=== PATIENT | male | born 1950 | race Caucasian/White ===

== ENCOUNTER 2016-04-15 16:42 | Emergency (ER) | payer OTHER ==
[~2016-04-15] VITALS: Ht 180.3 cm; Wt 105.1 kg
[~2016-04-15 16:42] MED LIST: ASPI81TA82 PO; EZET10TA47 PO; HYDR25TA4 PO; LSN20 PO; METO50TA17 PO; MULTTAB5 PO; PRVC/40 PO
[2016-04-15 16:44] VITALS: Ht 180.3 cm; Wt 105.1 kg
[2016-04-15] MEDS ORDERED: ACETAMINOPHEN 500 MG TAB PO STA (19:12)
[2016-04-15] MEDS ORDERED: SODIUM CHLORIDE 0.9% 1000ML 1,000 ML IV STA (19:12)
[2016-04-15] MEDS ORDERED: KETOROLAC TROMETHAMINE 30 MG/ML VIAL IV STA (19:12)
--- NOTE | 2016-04-15 19:14 | EMERGENCY ROOM VISIT NOTE ---
History Report prepared by Teresa: Kirby Camara Under the Supervision of: Dr. Claudia Quijano M.D. First contact with patient: 18:54 Chief Complaint: CHEST PAIN Stated Complaint: CHEST PAIN Nursing Triage Summary: Triage note: Pt ambulatory to triage. pt reports intermittent left chest pain x 2 weeks. pt reports in 1999 he had angioplasty and stent placement. History of Present Illness The patient is a 66 year old male who presents to the Emergency Room with complaints of worsening left lower chest pain starting a few weeks ago. He also complains of left upper quadrant abdominal pain. He describes it to be a mild pain. He reports the pain worsens at night. The patient has worsening pain with lying down on his back, lying on his left side, and with palpation. The patient denies any recent injuries. He denies cough, rash, or any other complaints. He has a history of angioplasty, cardiac stent placement, hypercholesteremia, and hypertension. He has a family history of myocardial infarction. He denies any family history of blood clots. Source of History: patient Onset: a few weeks ago Position: chest (left) Symptom Intensity: mild Timing: worsening Modifying Factors (Worsening): other (lying down on his back, lying on his left side, and with palpation) Associated Symptoms: + abdominal pain, No cough, No rash Review of Systems See HPI for pertinent positives & negatives. A total of 10 systems reviewed and were otherwise negative. Past Medical & Surgical Medical Problems: (1) Heart disease (2) Hyperlipidemia (3) Hypertension Surgical Problems: (1) Hx of heart artery stent Family History Cancer Heart disease Hypertension Social History Smoking Status: Never Smoker Alcohol Use: occasionally Marital Status: Housing Status: lives with family Occupation Status: retired Current/Historical Medications Scheduled Aspirin (Aspirin Ec), 81 MG PO DAILY Ezetimibe (Zetia), 10 MG PO DAILY Hydrochlorothiazide (Hctz), 25 MG PO DAILY Lisinopril (Lisinopril), 1 TAB PO DAILY Metoprolol Tartrate (Metoprolol Tartrate), 1 TAB PO BID Multiple Vitamins W/ Minerals (Centrum), 1 TAB PO DAILY Pravastatin Sod (Pravastatin Sodium), 1 TAB PO DAILY Allergies Coded Allergies: BEE STING (Verified Allergy, Intermediate, swelling, 02/16/15) Penicillin V (Verified Allergy, Unknown, reaction as a child not sure as adult, 02/16/15) Physical Exam Vital Signs Date Time Temp Pulse Resp B/P Pulse Ox O2 Delivery O2 Flow Rate FiO2 04/15/16 19:13 72 04/15/16 18:57 70 18 175/86 98 04/15/16 16:44 36.8 80 18 191/94 97 Room Air Physical Exam CONSTITUTIONAL: Mild painful distress, anxious HEENT: No icterus, moist mucous membranes NECK: No meningismus, trachea is midline. CARDIOVASCULAR: Regular rate, normal perfusion RESPIRATORY: Unlabored breathing. Clear to auscultation. GASTROINTESTINAL: Non-tender GENITOURINARY: No flank tenderness MUSCULOSKELETAL: Full range of motion NEUROLOGIC: No acute gross focal deficits. PSYCHIATRIC: Normal affect SKIN: Normal for ethnicity. Medical Decision & Procedures Laboratory Results 04/15/16 19:27 Red Blood Count 4.47, Mean Corpuscular Volume 88.8, Mean Corpuscular Hemoglobin 31.5, Mean Corpuscular Hemoglobin Concent 35.5, Mean Platelet Volume 9.3, Neutrophils (%) (Auto) 54.4, Lymphocytes (%) (Auto) 32.3, Monocytes (%) (Auto) 9.4, Eosinophils (%) (Auto) 3.1, Basophils (%) (Auto) 0.6, Neutrophils # (Auto) 4.93, Lymphocytes # (Auto) 2.93, Monocytes # (Auto) 0.85, Eosinophils # (Auto) 0.28, Basophils # (Auto) 0.05 04/15/16 19:27 Test 04/15/16 19:27 White Blood Count 9.06 K/uL (4.8-10.8) Red Blood Count 4.47 M/uL (4.7-6.1) Hemoglobin 14.1 g/dL (14.0-18.0) Hematocrit 39.7 % (42-52) Mean Corpuscular Volume 88.8 fL (80-100) Mean Corpuscular Hemoglobin 31.5 pg (25-34) Mean Corpuscular Hemoglobin Concent 35.5 g/dl (32-36) Platelet Count 274 K/uL (130-400) Mean Platelet Volume 9.3 fL (7.4-10.4) Neutrophils (%) (Auto) 54.4 % Lymphocytes (%) (Auto) 32.3 % Monocytes (%) (Auto) 9.4 % Eosinophils (%) (Auto) 3.1 % Basophils (%) (Auto) 0.6 % Neutrophils # (Auto) 4.93 K/uL (1.4-6.5) Lymphocytes # (Auto) 2.93 K/uL (1.2-3.4) Monocytes # (Auto) 0.85 K/uL (0.11-0.59) Eosinophils # (Auto) 0.28 K/uL (0-0.5) Basophils # (Auto) 0.05 K/uL (0-0.2) RDW Standard Deviation 46.0 fL (36.4-46.3) RDW Coefficient of Variation 14.1 % (11.5-14.5) Immature Granulocyte % (Auto) 0.2 % Immature Granulocyte # (Auto) 0.02 K/uL (0.00-0.02) Anion Gap 9.0 mmol/L (3-11) Est Creatinine Clear Calc Drug Dose 108.0 ml/min Estimated GFR () 106.3 Estimated GFR (Non- 91.7 BUN/Creatinine Ratio 16.3 (10-20) Calcium Level 8.8 mg/dl (8.5-10.1) Troponin I < 0.015 ng/ml (0-0.045) Labs reviewed by ED physician. Medications Administered Medications (Trade) Dose Ordered Sig/Willam Route Start Time Stop Time Status Last Admin Dose Admin Acetaminophen 1000 mg 1,000 mg NOW STAT PO 04/15/16 19:12 04/15/16 19:17 DC 04/15/16 19:35 1,000 MG Sodium Chloride (Nss 1000ml) 1,000 ml @ 0 mls/hr Q0M STAT IV 04/15/16 19:12 04/15/16 19:17 DC 04/15/16 19:34 0 MLS/HR Ketorolac Tromethamine (Toradol Inj) 15 mg NOW STAT IV 04/15/16 19:12 04/15/16 19:18 DC 04/15/16 19:36 15 MG ECG Indication: chest pain Rate (beats per minute): 66 Rhythm: normal sinus Findings: nonspecific-ST abn, no ectopy, other (Normal axis) ED Course 1853: Past medical records reviewed. The patient was evaluated in room A02. A complete history and physical examination was performed. 1911: Toradol Inj 15 mg IV, Sodium Chloride 1000 ml @ 0 mls/hr Wide Open IV, Tylenol Tab 1000 mg PO 1914: Morphine Sulfate 4 mg IV Medical Decision Differential diagnosis includes but is not limited to musculoskeletal pain, pulmonary embolus, heart disease. 66-year-old presented to the emergency department for evaluation of persistent possibly positional or pleuritic sternal or possibly retrosternal chest pain for 3 weeks. He notes a history of coronary artery disease status post [place] status post stenting roughly 15 years ago. Patient feels prickly anxious pelvis pain and would like to be reassured that there is no acute pathology or serious disease. We discussed the risks and benefits as well as pros and cons of x-ray imaging versus CT and decision was made to obtain CT. EKG, troponin and CTA chest study were all normal. Patient understands take [id number] analgesics as needed and follow-up with his primary doctor return for any worsening or worrisome symptoms. Impression Primary Impression: Precordial chest pain Scribe Attestation The scribe's documentation has been prepared under my direction and personally reviewed by me in its entirety. I confirm that the note above accurately reflects all work, treatment, procedures, and medical decision making performed by me. Departure Information Referrals Harjit Carrillo D.O. (PCP) Patient Instructions My [facility]
[2016-04-15] MEDS ORDERED: MoRPHine SULFATE 4 MG/ML 1 ML CARP\\VIAL IV PRN (19:15)
[2016-04-15] MEDS ORDERED: ASPI81TA28 PO (19:21)
[2016-04-15] MEDS ORDERED: OPTIRAY 320 IV PRN (19:30)
[2016-04-15 19:35] LABS: BASO % 0.6 %; BASO ABS # 0.05 K/uL (0-0.2); COMPLETE YES; EOS % 3.1 %; HEMATOCRIT 39.7 % (42-52); IG% 0.2 %; LYMPH % 32.3 %; LYMPH ABS # 2.93 K/uL (1.2-3.4); MEAN CELL VOLUME 88.8 fL (80-100); MEAN CORPUSCULAR HEMOGLOBIN 31.5 pg (25-34); MEAN CORPUSCULAR HGB CONC 35.5 g/dl (32-36); MEAN PLATELET VOLUME 9.3 fL (7.4-10.4); MONO % 9.4 %; NEUT % 54.4 %; PLATELET COUNT 274 K/uL (130-400); RED BLOOD COUNT 4.47 M/uL (4.7-6.1); WHITE BLOOD COUNT 9.06 K/uL (4.8-10.8)
--- NOTE | 2016-04-15 19:50 | DIAGNOSTIC IMAGING REPORT ---
CHEST ONE VIEW PORTABLE CLINICAL HISTORY: Left-sided chest pain. COMPARISON STUDY: Chest radiograph and chest CT February 16, 2015. FINDINGS: Lung volumes are normal. No pneumothorax or pleural effusion is present. There is no evidence of pulmonary edema. Mild cardiomegaly is unchanged. IMPRESSION: No acute cardiopulmonary findings. Electronically signed by: Guzman Blum M.D. 04/15/2016 7:48 PM Dictated Date/Time: 04/15/2016 7:48 PM
[2016-04-15 19:54] LABS: BLOOD UREA NITROGEN 14 mg/dl (7-18); BUN/CREATININE RATIO 16.3 (10-20); CALCIUM 8.8 mg/dl (8.5-10.1); CARBON DIOXIDE 27 mmol/L (21-32); CHLORIDE 104 mmol/L (98-107); CREATININE 0.83 mg/dl (0.60-1.40); GLUCOSE 83 mg/dl (70-99); POTASSIUM 3.9 mmol/L (3.5-5.1); SODIUM 140 mmol/L (136-145)
--- NOTE | 2016-04-15 20:42 | DIAGNOSTIC IMAGING REPORT ---
CT ANGIOGRAPHY OF THE CHEST, PULMONARY EMBOLUS PROTOCOL CLINICAL HISTORY: Chest pain. Evaluate for pulmonary embolus or left sternal mass. COMPARISON STUDY: Chest CT February 16, 2015. TECHNIQUE: Following IV administration of 88 mL of Optiray-320, helical axial images of the chest were obtained utilizing the pulmonary embolus protocol. Maximal intensity projections and sagittal and coronal reformats were viewed on an independent 3D workstation. IV contrast was administered without complication. CT DOSE: 545.36 mGy.cm FINDINGS: No pulmonary emboli are identified. The heart is mildly enlarged. There is no pericardial effusion. There is extensive coronary artery calcification. No enlarged thoracic lymph nodes are present. Central airways are patent. No pneumothorax or pleural effusion is present. There is no consolidation. No sternal abnormalities identified by CT. IMPRESSION: 1. No pulmonary emboli identified. 2. No acute intrathoracic findings. 3. No sternal abnormality by CT. 4. Mild cardiomegaly and extensive coronary artery calcification. Electronically signed by: Guzman Blum M.D. 04/15/2016 8:40 PM Dictated Date/Time: 04/15/2016 8:35 PM
[2016-04-15 21:26] VITALS: BP 175/86; PULSE 72; TEMP 36.8; O2SAT 98
== END 2016-04-15 21:32 | disposition home or self-care (01) ==
LOC: C.EDB 16:42 → C.EDA 21:32
DX: R07.2 Precordial pain (principal); R10.12 Left upper quadrant pain; I25.10 Atherosclerotic heart disease of native coronary artery without angina pectoris; I25.2 Old myocardial infarction; I11.9 Hypertensive heart disease without heart failure; E78.5 Hyperlipidemia, unspecified; Z79.899 Other long term (current) drug therapy; Z79.82 Long term (current) use of aspirin; Z95.5 Presence of coronary angioplasty implant and graft; Z82.49 Family history of ischemic heart disease and other diseases of the circulatory system

== ENCOUNTER → 2016-10-11 | Outpatient (CLI) | payer OTHER ==
[~2016-10-11] MED LIST changes: +ASPI81TA28 PO; -ASPI81TA82 PO
--- NOTE | 2016-10-18 08:47 | CODING QUERY MEDICAL NECESSITY ---
SUPPORTING DIAGNOSIS NEEDED A supporting diagnosis is required for the test/procedure performed on this patient in order for us to be reimbursed by the patient's insurance. Please provide a supporting diagnosis for the following test/procedure listed below next to the test name along with your signature. *If there is no additional diagnosis for this patient that would support the following test/procedure please document that below next to the test/procedure. Test(s)/Procedure(s) that require a supporting diagnosis: * PSA DIAGNOSIS: Provider Signature: Date: Thank you Candelaria Blue [employer] Information Management Once completed, please kindly fax back to [phone] For questions please call [phone]
== END | disposition home or self-care (01) ==
LOC: C.LAB 15:57
PROVIDERS: ATTEND Urology
DX: R36.1 Hematospermia (principal); R35.1 Nocturia

== ENCOUNTER 2017-07-28 21:22 | Emergency (ER) | payer OTHER ==
[~2017-07-28] VITALS: Ht 180.3 cm; Wt 95.0 kg
[2017-07-28 21:32] VITALS: TEMP 37.1; Ht 180.3 cm; Wt 95.0 kg
--- NOTE | 2017-07-28 22:21 | DIAGNOSTIC IMAGING REPORT ---
R FOOT MIN 3 VIEWS ROUTINE CLINICAL HISTORY: 67 years-old Male presenting with right foot pain, remote injury. TECHNIQUE: Frontal, oblique, and lateral views of the right foot were obtained. COMPARISON: None. FINDINGS: Severe joint space loss, osteophytosis, subchondral sclerosis, and cystic change evident in the first metatarsophalangeal joint. Minimal associated soft tissue swelling. No other significant sites of degenerative change. Symphalangism of the middle and distal phalanges of the fifth toe. No acute fracture or malalignment. Atherosclerosis. IMPRESSION: 1. Advanced degenerative change characteristic of osteoarthritis at the first metatarsophalangeal joint. 2. No acute osseous injury. Electronically signed by: Ahsan Boswell M.D. 07/28/2017 10:20 PM Dictated Date/Time: 07/28/2017 10:18 PM
--- NOTE | 2017-07-28 22:52 | EMERGENCY ROOM VISIT NOTE ---
History First contact with patient: 21:36 Chief Complaint: FOOT PAIN Stated Complaint: HURT RT FOOT, MUCH PAIN History of Present Illness The patient is a 67 year old male who presents to the Emergency Room with complaints of right foot pain. The patient reports that approximately 2 months ago, he slid down 3 steps and hit the right heel against the floor. He had some intermittent pain of the foot at that time for approximately 1 week. He states that the pain resolved and he has been pain-free since then until a few days ago. He reports that for the past 2 days, he has been doing yard work and has begun to have pain in his right heel again. He states the pain is an aching , throbbing pain and rates the discomfort as 7/10. The pain is worse with walking and improves with rest. He has been taking Tylenol without improvement. He denies any numbness or weakness. He is able to walk without difficulty. He has full range of motion of his ankle and all toes. He denies prior injuries to this foot or surgeries. Review of Systems A complete 6 point review of systems was reviewed with the patient with pertinent positives and negatives as per history of present illness. All else were negative. Past Medical/Surgical History Medical Problems: (1) Heart disease (2) Hyperlipidemia (3) Hypertension Surgical Problems: (1) Hx of heart artery stent Family History Cancer Heart disease Hypertension Social History Smoking Status: Never Smoker Alcohol Use: occasionally Marital Status: Housing Status: lives with family Occupation Status: retired Current/Historical Medications Scheduled Aspirin (Aspirin Ec), 81 MG PO DAILY Ezetimibe (Zetia), 10 MG PO DAILY Hydrochlorothiazide (Hctz), 25 MG PO DAILY Lisinopril (Lisinopril), 1 TAB PO DAILY Metoprolol Tartrate (Metoprolol Tartrate), 1 TAB PO BID Multiple Vitamins W/ Minerals (Centrum), 1 TAB PO DAILY Pravastatin Sod (Pravastatin Sodium), 1 TAB PO DAILY Ranitidine HCl (Ranitidine HCl), 150 MG PO BID Physical Exam Vital Signs Date Time Temp Pulse Resp B/P (MAP) Pulse Ox O2 Delivery O2 Flow Rate FiO2 07/28/17 22:56 61 18 159/84 99 07/28/17 21:32 37.1 59 18 155/77 99 Physical Exam VITALS: Vitals are noted on the nurse's note and reviewed by myself. Vital signs stable. GENERAL: This is a 67-year-old male, in no acute distress, nondiaphoretic, well- developed well-nourished. SKIN: The skin was without rashes, erythema, edema, or bruising. MUSCULOSKELETAL: No deformity of the right foot. No obvious swelling. There is mild tenderness to palpation to the medial aspect of the right foot. No tenderness over the plantar fascia. Full range of motion of the ankle and all toes. NEURO: Patient was alert and oriented to person place and time. Distal sensation intact. Medical Decision & Procedures ER Provider Diagnostic Interpretation: R FOOT MIN 3 VIEWS ROUTINE CLINICAL HISTORY: 67 years-old Male presenting with right foot pain, remote injury. TECHNIQUE: Frontal, oblique, and lateral views of the right foot were obtained. COMPARISON: None. FINDINGS: Severe joint space loss, osteophytosis, subchondral sclerosis, and cystic change evident in the first metatarsophalangeal joint. Minimal associated soft tissue swelling. No other significant sites of degenerative change. Symphalangism of the middle and distal phalanges of the fifth toe. No acute fracture or malalignment. Atherosclerosis. IMPRESSION: 1. Advanced degenerative change characteristic of osteoarthritis at the first metatarsophalangeal joint. 2. No acute osseous injury. Medical Decision Differential diagnosis includes fracture, contusion, sprain, plantar fasciitis, heel spurs, stress fracture, among others. The patient was evaluated as above. X-ray of the foot was obtained and read by radiology with no acute findings. Patient was advised to follow-up with podiatry or orthopedics for further evaluation of his foot pain. He was advised to ice the foot for swelling/pain and elevate the foot as well. He verbalized understanding of my assessment and treatment plan and was discharged home in good condition. The patient was independently evaluated by Dr. Swanson, ED attending physician, who agreed with my assessment and treatment plan. Blood Pressure Screening Patient's blood pressure: Elevated blood pressure Blood pressure disposition: Elevated BP felt to be situational Impression Primary Impression: Right foot pain Departure Information Dispostion Home / Self-Care Condition GOOD Referrals Harjit Carrillo D.O. (PCP) Bernard Retana MD Patient Instructions My [facility] Additional Instructions You have been treated in the Emergency Department for foot pain. For pain control, you can use the following [id number] medicines (if >12 yo): - Regular strength (325mg/tab) Tylenol (acetaminophen) 2 tabs every 4-6 hours as needed. Do not exceed 12 tablets in a 24 hour period. Avoid taking more than 4 grams (4000 mg) of Tylenol per day. This includes any other sources of acetaminophen you may take on a regular basis. - Regular strength (200 mg/tab) Advil (ibuprofen) 1-2 tabs every 4-6 hours as needed. Do not exceed a dose of 3200 mg per day. If this is a recent injury (<24 hrs), ice can be applied to the area of pain for the first 3 days to help decrease pain and inflammation. You may follow-up with either orthopedics or a hris administrator for further evaluation of your foot pain. Rest as much as possible. Return to the Emergency Department if your current symptoms worsen despite treatment course outlined above, or if you develop any of the following symptoms : intractable pain despite aforementioned treatment course or new onset of numbness or tingling of the foot.
[2017-07-28 22:56] VITALS: BP 159/84; PULSE 61; O2SAT 99
[2017-07-28] MEDS ORDERED: RANI150T2 PO (22:58)
--- NOTE | 2017-07-29 01:35 | EMERGENCY ROOM VISIT NOTE ---
ED Visit Note First contact with patient: 21:36 I have personally seen and evaluated the patient with the PA. I agree with the diagnosis and management decisions and have been personally involved in the case. Please see Krystal Retana PA-C's notes for further details of the history, physical and visit.
== END 2017-07-28 22:58 | disposition home or self-care (01) ==
LOC: C.EDB 21:23 → C.EDD 22:58
DX: M79.671 Pain in right foot (principal); I51.9 Heart disease, unspecified; E78.5 Hyperlipidemia, unspecified; I10 Essential (primary) hypertension; Z79.82 Long term (current) use of aspirin

== ENCOUNTER 2020-08-06 22:43 | Observation (INO) ==
[2020-08-06] MEDS ORDERED: ASPIRIN 81 MG CHEW PO STA (23:05)
[2020-08-06] MEDS ORDERED: NITROGLYCERIN SL 0.4 MG/TAB TAB SL STA (23:05)
--- NOTE | 2020-08-06 23:10 | Emergency Department Note ---
Impression & Plan Left sided chest pain, Hypertension ED Provider Note Name: TERE HOOD Age: 70 Sex: M Arrives Via: Walk-In Informant: Patient ED Provider: Joe Jack MD Chief Complaint: Chest Pain Impression: Left Sided Chest Pain Hypertension Medical Decision Makin yr old male with history CAD s/p stents 20 years ago, HTN, DLP, prostate CA, arrives with intermittent left chest pressure over last 24 hours, worsening this evening. Resolved with Sublingual nitro, as well at ASA 324mg PO. Initial EKG and Trop OK. CXR clear and labs unremarkable. High risk cardiac thus will need hospitalization. Prior Medical Record and Triage/Nursing Notes reviewed by Me Additional history obtained from chart Differentials:Cardiac ischemia, aortic dissection, pulmonary embolism, pneumothorax, pneumonia, pericarditis, myocarditis, esophageal rupture, GERD, cholecystitis, pancreatitis, musculoskeletal, as well as other pathologies. Vital Signs: reviewed and remarkable for HTN Interventions: saline lock, slntg, asa 324mg po Labs:Reviewed and remarkable for no significant abnormalities Imaging:X ray results are stated below per my interpretation: Chest: 1 view: No infiltrate, no effusion, normal cardiac border. EKG:Per My Interpretation: Indication Chest Pain: NSR 82 bpm, qtc 450. No Ectopy. No Ischemia. No previous for comparison Cardiac/Tele Monitoring: Cardiac Monitoring: An Order was placed for continuous cardiac monitoring. The monitor shows a rate of 80 with a normal sinus rhythm. Consults:Dr Harman LOCKHART Hospitalist Plan: Disposition:Hospitalization. Condition: Good History of Present Illness:70 yr old male arrives for evaluation of left chest pain. 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 He notes that it has been waxing and waning throughout the day. Worse with exertion/mowing, better with rest. Dull in nature. 05/07 currently. No radiation. No sob, syncope, palpitations, nausea, vomiting, abdominal pain, back pain, nor other symptoms. Denies leg/calf pain nor swelling. No medications prior to arrival. No trauma/injuries. History of CAD with cath in 1999 resulting in stents. Stress test last year was reportedly normal. Patient is active, walks on treadmill daily without issues. No smoking, drugs. Occasional etoh. Diagnosed with Prostate CA recently and has yet to start treatment. ROS: See above HPI for pertinent positives & negatives. A total of 10 systems reviewed and were otherwise negative. Past Medical History:HTN, Dyslipidemia, CAD, prostate ca Past Surgical History:Heart Cath with stents, right wrist surgery Family History:Extensive, See Below Social History:Retired, active, , no drugs/tobacco, occasional etoh Home Medications:See Below Allergies:PNC, Bees Vitals:Blood Pressure: 212/91, Pulse 89, RR 18, T 36.5C, O2 95% on RA Physical Exam: GENERAL: Patient is anxious appearing and in mild distress. EYES: No scleral icterus, unremarkable pupils. ENT: Mucous membranes moist, no nasal congestion. NECK: No masses appreciated, nomeningismus, trachea is midline. RESPIRATORY: No dyspnea. Clear to auscultation and equal bilaterally. No wheeze, no rhonchi. CARDIOVASCULAR: Regular rate and rhythm.No murmurs, rubs, gallops appreciated. GASTROINTESTINAL: Abdomen soft, non-tender, no peritonitis.Bowel sounds positive.No masses appreciated. BACK: No midline tenderness, no CVA tenderness EXTREMITIES: Normal motion all extremities, no cyanosis, no edema. NEUROLOGIC: Alert and oriented, no acute motor or sensory deficits, no focal weakness, cranial nerves grossly intact. SKIN: No rash, no jaundice, no diaphoresis. PSYCH: Appropriate GCS: 15 ED Course: Times/Reassessments: stable, chest pain resolved, comfortable with hospitalization Joe Jack MD Past Med/Surg History Medical History (Updated 08/07/20 @ 05:45 by Joe Jack MD) BPH (benign prostatic hyperplasia) BPH loc w urin obs/LUTS Degenerative disc disease Elevated PSA Heart disease Hematospermia Hiatal hernia Hyperlipidemia Hypertension Impotence Left sided abdominal pain Left sided chest pain Organic impotence Osteoarthritis Pure hypercholesterolemia Surgical History (Updated 08/06/20 @ 08:56 by Nica Agee RN) H/O carpal tunnel repair Right H/O hernia repair History of colonoscopy History of esophagogastroduodenoscopy (EGD) History of heart artery stent 2 STENTS PLACED (1999 AT [facility]) History of tonsillectomy and adenoidectomy History of tooth extraction Family History (Updated 08/07/20 @ 02:51 by Mel Camargo MD) Father , 79yo Colorectal cancer Myocardial infarction Heart disease Mother , 81yo Myocardial infarction COPD (chronic obstructive pulmonary disease) Hypertension Heart disease Sister Myocardial infarction Heart disease Sister No problems noted. Brother Myocardial infarction Brother Hypertension Brother Hypertension Brother Hypertension Testicular cancer Heart disease Daughter Viral encephalitis 2017 Daughter No problems noted. 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 Other Information That Helps Us Care for You: No Feels Safe at Home: Yes Safety Concerns: Feels Safe At This Time caffeine: No during the past year weight has: remained stable Assistive Devices: Glasses Allergies Allergies Allergy/AdvReac Type Severity Reaction Status Date / Time bee venom protein (honey bee) Allergy Intermediate swelling Verified 08/06/20 09:38 penicillin V Allergy Unknown reaction Verified 08/06/20 09:38 as a child not sure as adult Home Meds Home Medications Medication Instructions Recorded Confirmed aspirin 81 mg tablet,delayed 81 mg PO QPM 04/03/19 08/06/20 release ezetimibe 10 mg tablet 10 mg PO QPM 04/03/19 08/06/20 hydrochlorothiazide 25 mg tablet 25 mg PO QAM 04/03/19 08/06/20 lisinopril 20 mg tablet 20 mg PO QAM 04/03/19 08/06/20 metoprolol tartrate 50 mg tablet 50 mg PO BID 04/03/19 08/06/20 pravastatin 40 mg tablet 40 mg PO QPM 04/03/19 08/06/20 multivitamin 1 tab PO QAM 12/17/19 08/06/20 Results & Data (ED) Vital Signs Vital Signs - 24 hr 08/06/20 22:44 08/06/20 23:00 08/06/20 23:05 Temperature 36.5 C Temperature Source Temporal Artery Scan Pulse Rate 89 84 79 Pulse Rate from SpO2 Sensor 83 79 Respiratory Rate 18 23 18 Blood Pressure 212/91 H 183/81 H Blood Pressure Mean 131 115 Pulse Oximetry 95 97 98 Oxygen Delivery Method Room Air Sepsis Recent Fever Within 48 Hours No Sepsis New/Unexplained Change in Mental Status No Sepsis Action Taken by Nursing No Action Required 08/06/20 23:10 08/06/20 23:30 08/06/20 23:31 Temperature Temperature Source Pulse Rate 69 76 80 Pulse Rate from SpO2 Sensor 70 80 Respiratory Rate 18 15 20 Blood Pressure 170/88 H 155/80 H Blood Pressure Mean 115 105 Pulse Oximetry 97 95 96 Oxygen Delivery Method Sepsis Recent Fever Within 48 Hours Sepsis New/Unexplained Change in Mental Status Sepsis Action Taken by Nursing 08/07/20 00:00 08/07/20 00:01 08/07/20 00:30 Temperature Temperature Source Pulse Rate 63 64 64 Pulse Rate from SpO2 Sensor 62 64 65 Respiratory Rate 16 15 22 Blood Pressure 145/79 H 167/79 H Blood Pressure Mean 101 108 Pulse Oximetry 95 97 98 Oxygen Delivery Method Sepsis Recent Fever Within 48 Hours Sepsis New/Unexplained Change in Mental Status Sepsis Action Taken by Nursing 08/07/20 01:00 08/07/20 01:01 Temperature Temperature Source Pulse Rate 62 66 Pulse Rate from SpO2 Sensor 65 63 Respiratory Rate 21 25 H Blood Pressure 165/90 H Blood Pressure Mean 115 Pulse Oximetry 95 98 Oxygen Delivery Method Sepsis Recent Fever Within 48 Hours Sepsis New/Unexplained Change in Mental Status Sepsis Action Taken by Nursing Laboratory Data Result diagrams: 08/06/20 23:06 08/06/20 23:06 Lab Results 08/06/20 08/06/20 08/06/20 Range/Units 23:06 23:06 23:06 WBC 8.23 (4.8-10.8) K/uL RBC 4.57 L (4.7-6.1) M/uL Hgb 14.4 (14.0-18.0) g/dL Hct 42.1 (42-52) % MCV 92.1 (80-100) fL MCH 31.5 (25-34) pg MCHC 34.2 (32-36) g/dL RDW Std Deviation 45.6 (36.4-46.3) fL RDW Coeff of Connie 13.5 (11.5-14.5) % Plt Count 265 (130-400) K/uL MPV 9.5 (7.4-10.4) fL Immature Gran % (Auto) 0.1 % Neut % (Auto) 52.3 % Lymph % (Auto) 33.8 % [place] % (Auto) 9.5 % Eos % (Auto) 3.9 % Baso % (Auto) 0.4 % Neut # (Auto) 4.31 (1.4-6.5) K/uL Lymph # (Auto) 2.78 (1.2-3.4) K/uL [place] # (Auto) 0.78 H (0.11-0.59) K/uL Eos # (Auto) 0.32 (0-0.5) K/uL Baso # (Auto) 0.03 (0-0.2) K/uL Immature Gran # (Auto) 0.01 (0.00-0.02) K/uL D-Dimer 370 (0-500) ug/L FEU Sodium 140 (136-145) mmol/L Potassium 3.4 L (3.5-5.1) mmol/L Chloride 105 (98-107) mmol/L Carbon Dioxide 30 (21-32) mmol/L Anion Gap 5.0 (3-11) BUN 14 (7-18) mg/dl Creatinine 0.81 (0.6-1.4) mg/dl Est Cr Clr Drug Dosing 100.9 ml/min Est GFR ( Amer) 104.4 ml/min Est GFR (Non-Af Amer) 90.0 ml/min BUN/Creatinine Ratio 16.7 (10-20) Glucose 125 H (70-99) mg/dl Calcium 9.2 (8.5-10.1) mg/dl Magnesium 2.1 (1.8-2.4) mg/dl Troponin I < 0.015 (0-0.045) ng/ml COVID-19 Eval Order SARS-CoV-2 (PCR) (Negative) 08/06/20 08/06/20 Range/Units 23:19 23:19 WBC (4.8-10.8) K/uL RBC (4.7-6.1) M/uL Hgb (14.0-18.0) g/dL Hct (42-52) % MCV (80-100) fL MCH (25-34) pg MCHC (32-36) g/dL RDW Std Deviation (36.4-46.3) fL RDW Coeff of Connie (11.5-14.5) % Plt Count (130-400) K/uL MPV (7.4-10.4) fL Immature Gran % (Auto) % Neut % (Auto) % Lymph % (Auto) % [place] % (Auto) % Eos % (Auto) % Baso % (Auto) % Neut # (Auto) (1.4-6.5) K/uL Lymph # (Auto) (1.2-3.4) K/uL [place] # (Auto) (0.11-0.59) K/uL Eos # (Auto) (0-0.5) K/uL Baso # (Auto) (0-0.2) K/uL Immature Gran # (Auto) (0.00-0.02) K/uL D-Dimer (0-500) ug/L FEU Sodium (136-145) mmol/L Potassium (3.5-5.1) mmol/L Chloride (98-107) mmol/L Carbon Dioxide (21-32) mmol/L Anion Gap (3-11) BUN (7-18) mg/dl Creatinine (0.6-1.4) mg/dl Est Cr Clr Drug Dosing ml/min Est GFR ( Amer) ml/min Est GFR (Non-Af Amer) ml/min BUN/Creatinine Ratio (10-20) Glucose (70-99) mg/dl Calcium (8.5-10.1) mg/dl Magnesium (1.8-2.4) mg/dl Troponin I (0-0.045) ng/ml COVID-19 Eval Order Covid19 at [facility] SARS-CoV-2 (PCR) NEGATIVE (Negative) Administered Medications Discontinued Medications Aspirin (Aspirin 81 Mg Chew) 324 mg PO NOW STA Stop: 08/06/20 23:06 Last Admin: 08/06/20 23:26 Dose: 324 mg Documented by: [id number] Nitroglycerin (Nitroglycerin Sl 0.4 Mg/Tab Tab) 0.4 mg SL NOW STA Stop: 08/06/20 23:06 Last Admin: 08/06/20 23:26 Dose: 0.4 mg Documented by: [id number] Discharge Plan Visit Data Chief Complaint: Chest Pain Stated Complaint: CHEST PAIN ED Provider: Joe Jack Discharge Problem: Left sided chest pain, Hypertension Patient Disposition: Admitted As Inpatient Discharge Instructions Interventions: ED Discharge Assessment Last Done: 08/07/20 03:11 Discharge Problem: Hypertension Qualifiers: Hypertension type: essential hypertension Qualified Code(s): I10 - Essential (primary) hypertension
[2020-08-06 23:20] LABS: Basophils # (auto) 0.03 K/uL (0-0.2); Basophils % (auto) 0.4 %; Eosinophils # (auto) 0.32 K/uL (0-0.5); Eosinophils % (auto) 3.9 %; Hematocrit (blood only) 42.1 % (42-52); Hemoglobin 14.4 g/dL (14.0-18.0); Immature Granulocytes # (auto) 0.01 K/uL (0.00-0.02); Immature Granulocytes % (auto) 0.1 %; Lymphocytes # (auto) 2.78 K/uL (1.2-3.4); Lymphocytes % (auto) 33.8 %; Mean Corpuscular Hemoglobin 31.5 pg (25-34); Mean Corpuscular Hgb Conc 34.2 g/dL (32-36); Mean Corpuscular Volume 92.1 fL (80-100); Mean Platelet Volume 9.5 fL (7.4-10.4); Monocytes # (auto) 0.78 K/uL (0.11-0.59); Monocytes % (auto) 9.5 %; Neutrophils # (auto) 4.31 K/uL (1.4-6.5); Neutrophils % (auto) 52.3 %; Platelet Count 265 K/uL (130-400); RDW Coefficient of Variation 13.5 % (11.5-14.5); RDW Standard Deviation 45.6 fL (36.4-46.3); Red Blood Count 4.57 M/uL (4.7-6.1); White Blood Count 8.23 K/uL (4.8-10.8)
[2020-08-06 23:58] LABS: BUN Creatinine Ratio 16.7 (10-20); Blood Urea Nitrogen 14 mg/dl (7-18); Calcium 9.2 mg/dl (8.5-10.1); Carbon Dioxide 30 mmol/L (21-32); Chloride 105 mmol/L (98-107); Creatinine Clr Calc Pharmacy 100.9 ml/min; Est GFR (African American) 104.4 ml/min; Glucose 125 mg/dl (70-99); Magnesium 2.1 mg/dl (1.8-2.4); Potassium 3.4 mmol/L (3.5-5.1); Sodium 140 mmol/L (136-145)
[2020-08-07 00:03] LABS: Troponin I < 0.015 ng/ml (0-0.045)
--- NOTE | 2020-08-07 01:07 | History & Physical Report ---
Date of Service August 07, 2020 Assessment & Plan (1) Left sided chest pain: 70 yo M with hx CAD s/p 2 stent placements, HTN, HLD, recent diagnosis of prostate cancer admitted for chest pain that is likely noncardiac in nature. Chest Pain Workup - most likely costochondritis given reproducible chest pain along chest wall, atypical features - negative initial trop, repeat x2 - no EKG changes - HEART score 4, moderate risk - d-dimer negative for PE evaluation in setting of new cancer - telemetry monitoring, TTE, trop trend - naproxen 250 mg bid for costochondritis tx HTN - cont lisinopril, metoprolol, HCTZ CAD - cont aspirin, - EKG with chest pain - PRN nitro HLD - cont exetimibe + statin DVT ppx: heparin SQ FEN/GI: heart healthy Code Status: Full COde Dispo: Med/Surg w tele (2) Prostate cancer: (3) Hypertension: (4) Pure hypercholesterolemia: (5) CAD, multiple vessel: History of Present Illness 70 yo M with hx HTN, HLD, CAD s/p 2 stents placed in 1999, fmhx heart disease, and recently diagnosed prostate cancer who presents to the ER for acute onset chest pain. He states the pain started at 3 am on 08/06 all of a sudden and was a sharp left sided pain. The pain resolved on its own in a matter of seconds wi thout intervention. This happened multiple more times throughout the day with sudden sharp twinges of left sided, nonradiating pain. No associated SOB, chest pressure, arm pain with twinges of pain. He does have some increased pain with taking a deep breath but did not have any chest pain with working out this morning. He hasn't taken anything to try and help the pain, and came to the ER because it was getting worse. He denies any smoking history, diabetic history. He states his blood pressure is generally well controlled at 140/85, but today was 200/90 at home prior to coming to the hospital. He has had multiple family members of heart attacks and strokes both older and younger than him. Primary Care Provider: Felicita Hernandez MD Allergies Allergy/AdvReac Type Severity Reaction Status Date / Time bee venom protein (honey bee) Allergy Intermediate swelling Verified 08/06/20 09:38 penicillin V Allergy Unknown reaction Verified 08/06/20 09:38 as a child not sure as adult Home Medications Medication Instructions Recorded Confirmed Type aspirin 81 mg tablet,delayed 81 mg PO QPM 04/03/19 08/06/20 History release ezetimibe 10 mg tablet 10 mg PO QPM 04/03/19 08/06/20 History hydrochlorothiazide 25 mg tablet 25 mg PO QAM 04/03/19 08/06/20 History lisinopril 20 mg tablet 20 mg PO QAM 04/03/19 08/06/20 History metoprolol tartrate 50 mg tablet 50 mg PO BID 04/03/19 08/06/20 History pravastatin 40 mg tablet 40 mg PO QPM 04/03/19 08/06/20 History multivitamin 1 tab PO QAM 12/17/19 08/06/20 History Past Med/Surg History Medical History (Updated 08/08/20 @ 00:05 by Dean Harris) BPH (benign prostatic hyperplasia) BPH loc w urin obs/LUTS Degenerative disc disease Elevated PSA Heart disease Hematospermia Hiatal hernia Hyperlipidemia Hypertension Impotence Left sided abdominal pain Left sided chest pain Organic impotence Osteoarthritis Pure hypercholesterolemia Surgical History (Updated 08/06/20 @ 08:56 by Nica Agee RN) H/O carpal tunnel repair Right H/O hernia repair History of colonoscopy History of esophagogastroduodenoscopy (EGD) History of heart artery stent 2 STENTS PLACED (1999 AT [facility]) History of tonsillectomy and adenoidectomy History of tooth extraction Family History (Updated 08/07/20 @ 02:51 by Mel Camargo MD) Father , 79yo Colorectal cancer Myocardial infarction Heart disease Mother , 81yo Myocardial infarction COPD (chronic obstructive pulmonary disease) Hypertension Heart disease Sister Myocardial infarction Heart disease Sister No problems noted. Brother Myocardial infarction Brother Hypertension Brother Hypertension Brother Hypertension Testicular cancer Heart disease Daughter Viral encephalitis 2017 Daughter No problems noted. 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 Feels Safe at Home: Yes caffeine: No during the past year weight has: remained stable Assistive Devices: Glasses Review of Systems Constitutional: no fever, no chills, no sweats and no fatigue Eyes: no blind spots and no discharge Ear, Nose, Mouth, Throat: no hearing loss and no nasal congestion Respiratory: no cough and no dyspnea Cardiovascular: + chest pain at rest; no chest pain with activity, no rad iating jaw, neck or arm pain, no dyspnea at rest, no dyspnea on exertion, no paroxysmal nocturnal dyspnea, no palpitations, no lightheadedness and no edema Gastrointestinal: no abdominal pain, no nausea, no vomiting, no constipation, no diarrhea/loose stools and no blood in stools Musculoskeletal: no joint pain and no myalgia Neurologic: no tingling, no numbness and no headache(s) Endocrine: no fatigue Physical Exam Physical Exam: Constitutional: well appearing male in NAD sitting up in bed Eyes: EOMI, pupils equal and reactive bilaterally, no scleral icterus Cardiac: RRR, no murmurs, gallops or rubs. Normal S1, S2 Pulm: CTA BL, no wheezes, rhonchi, crackles or rubs, moving air well throughout both lungs Chest: TTP along left 5th and 7th ribs at costochondral junction along sternum Abd: soft, nontender, nondistended, normal bowel sounds, no rebound or guarding Extremities: 2+ peripheral pulses, no edema Neuro: no focal deficits, moving all 4 limbs, A&Ox3 Results & Data Results & Data ([facility]) Vital Signs (Past 12 Hours) Vital Signs Temp Pulse Resp BP Pulse Ox 08/07/20 01:01 66 25 H 98 08/07/20 01:00 62 21 165/90 H 95 08/07/20 00:30 64 22 167/79 H 98 08/07/20 00:01 64 15 97 08/07/20 00:00 63 16 145/79 H 95 08/06/20 23:31 80 20 96 08/06/20 23:30 76 15 155/80 H 95 08/06/20 23:10 69 18 170/88 H 97 08/06/20 23:05 79 18 98 08/06/20 23:00 84 23 183/81 H 97 08/06/20 22:44 36.5 C 89 18 212/91 H 95 Laboratory Results WBC 8.23 K/uL (4.8-10.8) 08/06/20 23:06 RBC 4.57 M/uL (4.7-6.1) L 08/06/20 23:06 Hgb 14.4 g/dL (14.0-18.0) 08/06/20 23:06 Hct 42.1 % (42-52) 08/06/20 23:06 MCV 92.1 fL (80-100) 08/06/20 23:06 MCH 31.5 pg (25-34) 08/06/20 23:06 MCHC 34.2 g/dL (32-36) 08/06/20 23:06 RDW Std Deviation 45.6 fL (36.4-46.3) 08/06/20 23:06 RDW Coeff of Connie 13.5 % (11.5-14.5) 08/06/20 23:06 Plt Count 265 K/uL (130-400) 08/06/20 23:06 MPV 9.5 fL (7.4-10.4) 08/06/20 23:06 Immature Gran % (Auto) 0.1 % 08/06/20 23:06 Neut % (Auto) 52.3 % 08/06/20 23:06 Lymph % (Auto) 33.8 % 08/06/20 23:06 [place] % (Auto) 9.5 % 08/06/20 23:06 Eos % (Auto) 3.9 % 08/06/20 23:06 Baso % (Auto) 0.4 % 08/06/20 23:06 Neut # (Auto) 4.31 K/uL (1.4-6.5) 08/06/20 23:06 Lymph # (Auto) 2.78 K/uL (1.2-3.4) 08/06/20 23:06 [place] # (Auto) 0.78 K/uL (0.11-0.59) H 08/06/20 23:06 Eos # (Auto) 0.32 K/uL (0-0.5) 08/06/20 23:06 Baso # (Auto) 0.03 K/uL (0-0.2) 08/06/20 23:06 Immature Gran # (Auto) 0.01 K/uL (0.00-0.02) 08/06/20 23:06 D-Dimer 370 ug/L FEU (0-500) 08/06/20 23:06 Sodium 140 mmol/L (136-145) 08/06/20 23:06 Potassium 3.4 mmol/L (3.5-5.1) L 08/06/20 23:06 Chloride 105 mmol/L (98-107) 08/06/20 23:06 Carbon Dioxide 30 mmol/L (21-32) 08/06/20 23:06 Anion Gap 5.0 (3-11) 08/06/20 23:06 BUN 14 mg/dl (7-18) 08/06/20 23:06 Creatinine 0.81 mg/dl (0.6-1.4) 08/06/20 23:06 Est Cr Clr Drug Dosing 100.9 ml/min 08/06/20 23:06 Est GFR ( Amer) 104.4 ml/min 08/06/20 23:06 Est GFR (Non-Af Amer) 90.0 ml/min 08/06/20 23:06 BUN/Creatinine Ratio 16.7 (10-20) 08/06/20 23:06 Glucose 125 mg/dl (70-99) H 08/06/20 23:06 Calcium 9.2 mg/dl (8.5-10.1) 08/06/20 23:06 Magnesium 2.1 mg/dl (1.8-2.4) 08/06/20 23:06 Troponin I < 0.015 ng/ml (0-0.045) 08/06/20 23:06 COVID-19 Eval Order Covid19 at [facility] 08/06/20 23:19 SARS-CoV-2 (PCR) NEGATIVE (Negative) 08/06/20 23:19 Code Status & VTE Plan VTE Prophylaxis Plan VTE Prophylaxis will be ordered: Yes Supervising Physician Co-Signing Physician Notes Attending addendum: I have physically seen this patient, have supervised the medical residents activities, and agree with the H&P unless as otherwise noted. Assessment and Plan: Left-sided chest pain/CAD/hypertension- The patient will be admitted to telemetry for serial cardiac enzymes, serial EKG's, cardiac rhythm monitoring and a 2-D echocardiogram with Dopplers. Continue lisinopril, metoprolol and HCTZ with hold parameters Continue aspirin Nitroglycerin sublingual 0.5 mg every 5 minutes x3 as needed pain Hyperlipidemia- Continue Zetia and pravastatin Remaining orders and notations as noted Resident Activity Tracking Resident Involvement: Resident Care Provided Care Provided: Adult Hospital Medicine (1) Hypertension Hypertension type: essential hypertension Qualified Code(s): I10 - Essential (primary) hypertension
[2020-08-07 01:24] LABS: D Dimer 370 ug/L FEU (0-500)
[2020-08-07] MEDS ORDERED: POLYETHYLENE (MIRALAX) 17 GM PACK PO PRN (02:54)
[2020-08-07] MEDS ORDERED: ACETAMINOPHEN 325 MG TAB PO PRN (02:54)
[2020-08-07] MEDS ORDERED: NITROGLYCERIN SL 0.4 MG/TAB TAB SL PRN (02:54)
[2020-08-07] MEDS ORDERED: ONDANSETRON INJ 2 MG/ML 2 ML VIAL IV PRN (02:54)
[2020-08-07 07:15] LABS: Basophils # (auto) 0.04 K/uL (0-0.2); Basophils % (auto) 0.5 %; Eosinophils # (auto) 0.46 K/uL (0-0.5); Eosinophils % (auto) 5.5 %; Hematocrit (blood only) 41.2 % (42-52); Hemoglobin 13.9 g/dL (14.0-18.0); Immature Granulocytes # (auto) 0.02 K/uL (0.00-0.02); Immature Granulocytes % (auto) 0.2 %; Lymphocytes # (auto) 2.84 K/uL (1.2-3.4); Lymphocytes % (auto) 33.7 %; Mean Corpuscular Hemoglobin 30.5 pg (25-34); Mean Corpuscular Hgb Conc 33.7 g/dL (32-36); Mean Corpuscular Volume 90.5 fL (80-100); Mean Platelet Volume 9.3 fL (7.4-10.4); Monocytes # (auto) 0.81 K/uL (0.11-0.59); Monocytes % (auto) 9.6 %; Neutrophils # (auto) 4.26 K/uL (1.4-6.5); Neutrophils % (auto) 50.5 %; Platelet Count 221 K/uL (130-400); RDW Coefficient of Variation 13.6 % (11.5-14.5); RDW Standard Deviation 44.6 fL (36.4-46.3); Red Blood Count 4.55 M/uL (4.7-6.1); White Blood Count 8.43 K/uL (4.8-10.8)
--- NOTE | 2020-08-07 07:44 | XRay Report ---
XR chest 1V portable CLINICAL HISTORY: Left-sided chest pain. COMPARISON STUDY: Chest radiograph and chest CT April 15, 2016. FINDINGS: Lung volumes are normal. Lungs are clear. There is no pneumothorax or pleural effusion. Car diac size is stable. Mediastinal contours are normal. There is no evidence for pulmonary edema. IMPRESSION: No acute cardiopulmonary findings. ACT 112: Negative or not required by law. Electronically signed by: Guzman Blum M.D. 08/07/2020 7:42 AM
[2020-08-07 07:51] LABS: BUN Creatinine Ratio 19.2 (10-20); Creatinine Clr Calc Pharmacy 103.8 ml/min; Est GFR (Non-African American) 91.5 ml/min; Potassium 3.7 mmol/L (3.5-5.1)
[2020-08-07] MEDS ORDERED: MULTIVITAMIN TAB PO SCH (09:00)
[2020-08-07] MEDS ORDERED: lisinopril 20 MG TAB PO SCH (09:00)
[2020-08-07] MEDS ORDERED: METOPROLOL TARTRATE 50 MG TAB PO SCH (09:00)
[2020-08-07] MEDS ORDERED: NAPROXEN 250 MG TAB PO SCH (09:00)
[2020-08-07] MEDS ORDERED: hydroCHLOROthiazide 25 MG TAB PO SCH (09:00)
--- NOTE | 2020-08-07 12:07 | XCELERA ---
[id number]
[2020-08-07 12:21] VITALS: BP 165/84; PULSE 63; TEMP 98.2; O2SAT 95
--- NOTE | 2020-08-07 13:57 | Discharge Summary ---
Date of Service August 07, 2020 Admission HPI Per Admitting Provider 70 yo M with hx HTN, HLD, CAD s/p 2 stents placed in 1999, fmhx heart disease, and recently diagnosed prostate cancer who presents to the ER for acute onset chest pain. He states the pain started at 3 am on 08/06 all of a sudden and was a sharp left sided pain. The pain resolved on its own in a matter of seconds without intervention. This happened multiple more times throughout the day with sudden sharp twinges of left sided, nonradiating pain. No associated SOB, chest pressure, arm pain with twinges of pain. He does have some increased pain with taking a deep breath but did not have any chest pain with working out this morning. He hasn't taken anything to try and help the pain, and came to the ER because it was getting worse. He denies any smoking history, diabetic history. He states his blood pressure is generally well controlled at 140/85, but today was 200/90 at home prior to coming to the hospital. He has had multiple family members of heart attacks and strokes both older and younger than him. Primary Care Provider: Felicita Hernandez MD Principal Diagnosis Atypical chest pain Discharge Exam Constitutional WD/WN, vitals as above Neck trachea midline, no thyromegaly Respiratory normal respiratory effort, lungs clear to auscultation Cardiovascular RRR, no murmur, no edema Gastrointestinal (Abdomen) normal bowel sounds, soft, nontender, no hepatosplenomegaly Musculoskeletal no cyanosis or clubbing, extremities motor strength 5/5 Skin no rashes, warm and dry Neurologic patellar DTR's 2+ bilat, sensation intact and PERRL, EOMI, accommodation nl, no face palsy, no dysarthria Psychiatric A+Ox3, euthymic affect Lymphatic no cervical or axillary lymphadenopathy Discharge Data Allergies Allergy/AdvReac Type Severity Reaction Status Date / Time bee venom protein (honey bee) Allergy Intermediate swelling Verified 08/06/20 09:38 penicillin V Allergy Unknown reaction Verified 08/06/20 09:38 as a child not sure as adult Consultations 08/07/20 00:13 ED Decision to Admit Stat Hospital Course (1) Left sided chest pain: 70 yo M with hx CAD s/p 2 stent placements, HTN, HLD, recent diagnosis of prostate cancer admitted for chest pain that is likely noncardiac in nature. 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 needed he had a negative stress test in January 2020, no need to repeat at this time HTN - cont lisinopril, metoprolol, HCTZ CAD - cont aspirin, - EKG with chest pain - PRN nitro HLD - cont exetimibe + statin DVT ppx: heparin SQ FEN/GI: heart healthy Code Status: Full COde Dispo: Med/Surg w tele (2) Prostate cancer: (3) Hypertension: (4) Pure hypercholesterolemia: (5) CAD, multiple vessel: Total Time Total Time Spent Total Time Spent (In Minutes): 25 Discharge Plan Discharge Items Patient Disposition: Home - Self-Care Reason For Visit: CHEST PAIN Discharge Diagnosis: Chest pain, atypical Condition on Discharge: Good Goals: follow up as needed with PCP Activity: Resume your previous activity Non-emergency contact: Primary Care Provider Call non-emergency contact if: you have any medication questions and your symptoms worsen Follow-up/Referrals: Felicita Hernandez MD [Primary Care Provider] - 08/14/20 8:50 am (THIS APPOINTMENT WILL BE AT THE [facility]) Diet: Heart Healthy Addtl Attending Provider Instructions: Medications: no changes Chest pain, left sided, sharp, intermittent this is not characteristic of angina, or pain related to the heart troponin (heart enzyme) negative x 3 sets echocardiogram is normal, EF is 65%, no wall motion changes chest x-ray is normal EKG last night and this morning without ischemic changes can follow up with Dr. Rodriges if this continues to happen but at this time there is no evidence that this is related to your heart could be gas bubble, muscular pain Pending Studies at Discharge: No Stand-Alone Forms: [employer], Smoking Cessation Medications and DC Order Prescriptions: Continued aspirin [Adult Aspirin Regimen] 81 mg tablet,delayed release (DR/EC) 81 mg PO QPM RF: 0 ezetimibe [Zetia] 10 mg tablet 10 mg PO QPM RF: 0 hydrochlorothiazide 25 mg tablet 25 mg PO QAM RF: 0 lisinopril 20 mg tablet 20 mg PO QAM RF: 0 metoprolol tartrate 50 mg tablet 50 mg PO BID RF: 0 pravastatin 40 mg tablet 40 mg PO QPM RF: 0 multivitamin Tablet 1 tab PO QAM RF: 0 Discharge Orders: Discharge Order (Routine); Ordered 08/07/20 Ordered By: Zachary Mata Admission Data Admit Date/Time: 08/07/20 01:03 Attending Provider: Zachary Mata Admit Provider: Mel Camargo Primary Care Provider: Felicita Hernandez Other Providers: Faustino Hammer Coding Level of Care Code 26035 OBS Care - Discharge Diagnoses Left sided chest pain R07.9 Prostate cancer C61 Hypertension I10 Hypertension type: essential hypertension Pure hypercholesterolemia E78.00 CAD, multiple vessel I25.10
[2020-08-07] MEDS ORDERED: EZETIMIBE 10 MG TABLET PO SCH (21:00)
[2020-08-07] MEDS ORDERED: ASPIRIN 81 MG ECTAB PO SCH (21:00)
[2020-08-07] MEDS ORDERED: PRAVASTATIN SOD 40 MG TAB PO SCH (21:00)
--- NOTE | 2020-08-07 22:41 | Electrocardiogram Report ---
Test Reason : Blood Pressure : / mmHG Vent. Rate : 082 BPM Atrial Rate : 082 BPM P-R Int : 138 ms QRS Dur : 092 ms QT Int : 386 ms P-R-T Axes : 029 044 036 degrees QTc Int : 450 ms Normal sinus rhythm Nonspecific ST abnormality When compared with ECG of 15-APR-2016 16:44, Premature atrial complexes are no longer Present Confirmed by Kulwant Anaya ([id number]) on 08/07/2020 10:40:49 PM Referred By: REFERRED SELF Confirmed By:Kulwant Anaya
--- NOTE | 2020-08-07 22:56 | Electrocardiogram Report ---
Test Reason : Blood Pressure : / mmHG Vent. Rate : 064 BPM Atrial Rate : 064 BPM P-R Int : 168 ms QRS Dur : 094 ms QT Int : 444 ms P-R-T Axes : 066 058 053 degrees QTc Int : 458 ms Normal sinus rhythm Normal ECG When compared with ECG of 06-AUG-2020 22:54, No significant change was found Confirmed by Kulwant Anaya ([id number]) on 08/07/2020 10:56:22 PM Referred By: REFERRED SELF Confirmed By:Kulwant Anaya
--- NOTE | 2020-08-09 04:37 | Billing Data ---
Date of Service August 09, 2020 Coding Level of Care Code 02255 OBS Care - Level 3
== END 2020-08-07 14:59 | disposition home or self-care (01) ==
LOC: 2W 22:43 → ED 22:43 → SUATTDRO 08-07 01:03 → 2W 08-07 03:11